=== PATIENT | female | born 1950 | race Caucasian/White ===

== ENCOUNTER 2018-04-13 18:01 | Inpatient (IN) ==
[2018-04-13] MEDS ORDERED: methylPREDNISolone SOD SUC 125 MG/2 ML VIAL IV STA (18:17)
[2018-04-13] MEDS ORDERED: KETOROLAC 30 MG/1 ML VIAL IV STA (18:17)
[2018-04-13] MEDS ORDERED: ALBUTEROL/IPRATROPIUM 3 ML NEB RESP TX STA (18:17)
[2018-04-13] MEDS ORDERED: LORazepam 2 MG/1 ML VIAL IV STA ×2 (18:17→19:19)
[2018-04-13] MEDS ORDERED: LORazepam 2 MG/1 ML VIAL ONE (18:20)
[2018-04-13] MEDS ORDERED: LEVOFLOXACIN INJ 750 MG in PREMIX 1 EACH IV STA (19:00)
[2018-04-13 19:05] LABS: Basophils # 0.1 10*3/uL (0.0-0.2); Basophils % 0.6 % (0.0-0.8); Eosinophils % 0.1 % (0.00-10.9); Hematocrit 32.8 VOL% (35.7-47.0); Hemoglobin 10.6 GM/DL (12.0-16.0); Immature Granulocytes % 12.8 %; Immature Granulocytes Absolute 2.41 #; Lymphocytes # 0.8 10*3/uL (1.4-4.0); Lymphocytes % 4.1 % (21.3-54.2); Mean Corpuscular HGB Conc 32.3 GM/DL (32-36); Mean Corpuscular Hemoglobin 26 PG (27-34); Mean Platelet Volume 9.7 FL (9.6-12.0); Monocytes # 0.5 10*3/uL (0.11-0.8); Monocytes % 2.4 % (1.7-12.7); Neutrophils # 15.1 10*3/uL (1.4-7.4); Platelet Count 396 T/CUMM (130-400); Red Blood Count 4.15 MC/CUMM (3.8-5.5); Red Cell Distribution Width 14.1 % (9.3-17.3); White Blood Count 18.9 T/CUMM (4-12)
[2018-04-13] MEDS ORDERED: HALOPERIDOL 5 MG/ML AMP ONE (19:16)
[2018-04-13] MEDS ORDERED: HALOPERIDOL 5 MG/ML AMP IM STA (19:19)
[2018-04-13 19:26] LABS: Alanine Aminotransferase 13 U/L (13-56); Albumin 2.9 G/DL (3.4-5.0); Alkaline Phosphatase 106 U/L (45-117); Aspartate Amino Transferase 25 U/L (0-37); Blood Urea Nitrogen 13 MG/DL (7-18); Calcium 9.2 MG/DL (8.5-10.1); Glucose 250 MG/DL (74-106); Osmolality,Calculated 273.4 MOS/KG (273-304); Potassium 2.9 MMOL/L (3.5-5.1); Sodium 133 MMOL/L (136-145); Total Protein 9.4 G/DL (6.4-8.3); Troponin I < 0.015 NG/ML (0.00-0.045)
[2018-04-13 19:41] LABS: INR 1.1; PT Patient Result 12.2 SECS; Partial Thromboplastin Time 33.5 SECS (0-40)
[2018-04-13 19:43] LABS: Band Neutrophils 4 % (0-10); Lymphocytes 11 % (20-55); Metamyelocytes 1 %; Reactive Lymphocytes 2+; Segmented Neutrophils 80 % (50-85); Total Cells Counted 100
[2018-04-13 19:44] LABS: Hypochromasia Slight; Microcytosis Slight
[2018-04-13 19:45] LABS: Platelet Estimate Adequate
[2018-04-13] MEDS ORDERED: PROPOFOL 1,000 MG/100 ML BOTTLE IV ONE (20:12)
[2018-04-13 20:14] LABS: Amorphous Crystals,Urine Occasional /HPF (Few); Apearance,Urine CLOUDY (Clear); Bacteria,Urine Moderate /HPF (Few); Bilirubin,Urine Negative (Negative); Blood, Urine Moderate mg/dL (Negative); Glucose,Urine (UA) 50 mg/dL (Negative); Hyaline Casts,Urine 32 /LPF (0-3); Ketones,Urine Negative (Negative); Mucus,Urine Occasional /LPF (Occasional); Nitrite,Urine Negative (Negative); Protein,Urine 100 MG/DL; RBC,Urine 8 /HPF (0-4); Squamous Epithelial Cell,Urine Occasional /HPF (0-10); Urine Color Amber (Yellow); Urine Specific Gravity 1.015 (1.001-1.035); Urine Urobilinogen < 2.0 EU/DL (0.2-1.0); WBC,Urine 23 /HPF (0-6)
[2018-04-13 20:15] LABS: Barbiturates Screen,Urine Negative (Negative); Benzodiazepines Screen,Urine Negative (Negative); Cannabinoid Screen,Urine Negative (Negative); Opiate Screen,Urine Positive (Negative); Phencyclidine Screen,Urine Negative (Negative)
[2018-04-13] MEDS ORDERED: ETOMIDATE 20 MG/10 ML VIAL IV ONE (20:27)
[2018-04-13] MEDS ORDERED: ROCURONIUM 100 MG/10 ML VIAL IV ONE (20:27)
[2018-04-13] MEDS ORDERED: diphenhydrAMINE CAP 25 MG CAPSULE PO PRN (21:08)
[2018-04-13] MEDS ORDERED: ACETAMINOPHEN 325 MG TABLET PO PRN (21:08)
[2018-04-13] MEDS ORDERED: ONDANSETRON 4 MG/2 ML VIAL IV PRN (21:08)
[2018-04-13] MEDS ORDERED: NICOTINE 21 MG/24 HR PATCH TRANSDERM PRN (21:08)
[2018-04-13] MEDS ORDERED: ALBUTEROL 2.5 MG/3 ML NEB RESP TX PRN (21:08)
[2018-04-13] MEDS: PROPOFOL 1,000 MG/100 ML BOTTLE IV SCH (21:21)
[2018-04-13] MEDS ORDERED: CEFEPIME 1,000 MG in SYRINGE 1 EACH IV SCH (21:30)
[2018-04-13] MEDS ORDERED: SODIUM CHLORIDE 0.9% 1,000 ML IV SCH (21:30)
[2018-04-13] MEDS ORDERED: PROPOFOL 1,000 MG/100 ML BOTTLE IV SCH (21:30)
[2018-04-13 21:37] LABS: ABG Base Excess -7.7 MMOL/L (-2.5-2.5); ABG HCO3 18.2 MMOL/L (20-26); ABG Oxygen Saturation 97.7 % (95-100); ABG TCO2 19.6 MMOL/L (23-27)
[2018-04-13 21:38] LABS: ABG PH 7.188 (7.35-7.45)
[2018-04-13] MEDS ORDERED: SODIUM BICARBONATE 50 MEQ/50 ML SYRINGE IV ONE ×2 (23:17→23:20)
[2018-04-13] MEDS: PANTOPRAZOLE 40 MG VIAL IV SCH (23:30)
[2018-04-13] MEDS: CEFEPIME 1,000 MG in SYRINGE 1 EACH IV SCH (23:30)
[2018-04-13] MEDS: AZITHROMYCIN INJ 500 MG in SODIUM CHLORIDE 0.9% 250 ML IV SCH (23:33)
[2018-04-13] MEDS: VANCOMYCIN INJ 1,250 MG in SODIUM CHLORIDE 0.9% 250 ML IV SCH (23:33)
[2018-04-13] MEDS: POTASSIUM CHLORIDE RIDER 10 MEQ in PREMIX 1 EACH IV PRN (23:33)
[2018-04-13] MEDS: SODIUM BICARB INJ 100 MEQ in SODIUM CHLORIDE 0.9% 1,000 ML IV SCH (23:49)
[2018-04-14 00:56] LABS: ABG Base Excess 0.6 MMOL/L (-2.5-2.5); ABG HCO3 24.9 MMOL/L (20-26); ABG PCO2 43.4 MM HG (35-48); ABG PH 7.383 (7.35-7.45); ABG PO2 82.5 MM HG (80-95); ABG TCO2 23.6 MMOL/L (23-27); Allen Test Positive; Pt O2 Delivery Device Ventilator
[2018-04-14] MEDS: ALBUTEROL/IPRATROPIUM 3 ML NEB RESP TX SCH ×4 (00:58→19:20)
[2018-04-14] MEDS: POTASSIUM CHLORIDE RIDER 10 MEQ in PREMIX 1 EACH IV PRN ×7 (02:13→13:25)
[2018-04-14 04:25] LABS: Allen Test Positive; Pt O2 Delivery Device Ventilator
[2018-04-14 04:28] LABS: ABG Base Excess 3.3 MMOL/L (-2.5-2.5); ABG HCO3 28.6 MMOL/L (20-26); ABG Oxygen Saturation 93.6 % (95-100); ABG PCO2 46.3 MM HG (35-48); ABG PH 7.408 (7.35-7.45); ABG PO2 75.1 MM HG (80-95)
[2018-04-14 04:56] LABS: Basophils # 0.1 10*3/uL (0.0-0.2); Basophils % 0.3 % (0.0-0.8); Hematocrit 29.4 VOL% (35.7-47.0); Hemoglobin 9.5 GM/DL (12.0-16.0); Immature Granulocytes % 8.9 %; Immature Granulocytes Absolute 1.28 #; Lymphocytes # 0.9 10*3/uL (1.4-4.0); Lymphocytes % 5.9 % (21.3-54.2); Mean Corpuscular HGB Conc 32.3 GM/DL (32-36); Mean Corpuscular Hemoglobin 26 PG (27-34); Mean Platelet Volume 10.1 FL (9.6-12.0); Monocytes % 6.6 % (1.7-12.7); Neutrophils # 11.2 10*3/uL (1.4-7.4); Neutrophils % 78.3 % (38.7-73.9); Platelet Count 336 T/CUMM (130-400); Red Blood Count 3.72 MC/CUMM (3.8-5.5); Red Cell Distribution Width 14.2 % (9.3-17.3); White Blood Count 14.3 T/CUMM (4-12)
[2018-04-14] MEDS: PROPOFOL 1,000 MG/100 ML BOTTLE IV SCH ×5 (05:00→21:25)
[2018-04-14 05:26] LABS: Band Neutrophils 6 % (0-10); Eosinophils 1 % (0-10); Hypochromasia 1+; Lymphocytes 8 % (20-55); Microcytosis Slight; Platelet Estimate Adequate; Segmented Neutrophils 82 % (50-85); Total Cells Counted 100
[2018-04-14 05:27] LABS: Albumin 2.4 G/DL (3.4-5.0); Bilirubin,Total 1.4 MG/DL (0.2-1.0); Calcium 8.4 MG/DL (8.5-10.1); Osmolality,Calculated 286.4 MOS/KG (273-304); Potassium 3.3 MMOL/L (3.5-5.1); Total Protein 7.8 G/DL (6.4-8.3)
[2018-04-14] MEDS: SODIUM CHLORIDE 0.45% 1,000 ML IV SCH ×2 (08:50→16:50)
[2018-04-14] MEDS: SODIUM BICARB INJ 100 MEQ in SODIUM CHLORIDE 0.9% 1,000 ML IV SCH (08:53)
[2018-04-14] MEDS: ENOXAPARIN 40 MG/0.4 ML SYRINGE SUBCUT SCH (10:07)
[2018-04-14] MEDS ORDERED: DEXTROSE 50% 25 GM/50 ML SYRINGE IV PRN (12:07)
[2018-04-14] MEDS ORDERED: GLUCAGON 1 MG VIAL IM PRN (12:07)
[2018-04-14] MEDS: INSULIN REGULAR 100 UNIT/ML SUBCUT SCH (18:58)
[2018-04-14] MEDS: CEFEPIME 1,000 MG in SYRINGE 1 EACH IV SCH (20:53)
[2018-04-14] MEDS: PANTOPRAZOLE 40 MG VIAL IV SCH (20:53)
[2018-04-14] MEDS: AZITHROMYCIN INJ 500 MG in SODIUM CHLORIDE 0.9% 250 ML IV SCH (21:26)
[2018-04-15] MEDS: ALBUTEROL/IPRATROPIUM 3 ML NEB RESP TX SCH ×4 (00:06→19:17)
[2018-04-15] MEDS: INSULIN REGULAR 100 UNIT/ML SUBCUT SCH ×4 (00:38→18:05)
[2018-04-15] MEDS: PROPOFOL 1,000 MG/100 ML BOTTLE IV SCH ×6 (00:39→21:36)
[2018-04-15] MEDS: SODIUM CHLORIDE 0.45% 1,000 ML IV SCH ×2 (01:31→09:00)
[2018-04-15 02:56] LABS: ABG Base Excess 0.3 MMOL/L (-2.5-2.5); ABG HCO3 24.4 MMOL/L (20-26); ABG Oxygen Saturation 78.8 % (95-100); ABG PCO2 45.6 MM HG (35-48); ABG PH 7.362 (7.35-7.45); ABG PO2 47.4 MM HG (80-95); Allen Test Positive; Pt O2 Delivery Device Ventilator
[2018-04-15 03:19] LABS: ABG Base Excess 0.6 MMOL/L (-2.5-2.5); ABG HCO3 24.9 MMOL/L (20-26); ABG Oxygen Saturation 96.6 % (95-100); ABG PCO2 39.5 MM HG (35-48); ABG PH 7.411 (7.35-7.45); ABG PO2 83.8 MM HG (80-95); ABG TCO2 23.1 MMOL/L (23-27)
[2018-04-15 06:04] LABS: Prealbumin 9.9 MG/DL (20-40)
[2018-04-15 08:36] LABS: Basophils # 0.1 10*3/uL (0.0-0.2); Basophils % 0.2 % (0.0-0.8); Hematocrit 28.5 VOL% (35.7-47.0); Hemoglobin 9.1 GM/DL (12.0-16.0); Immature Granulocytes % 7.7 %; Immature Granulocytes Absolute 1.92 #; Lymphocytes # 1.3 10*3/uL (1.4-4.0); Lymphocytes % 5.4 % (21.3-54.2); Mean Corpuscular HGB Conc 31.9 GM/DL (32-36); Mean Corpuscular Hemoglobin 26 PG (27-34); Mean Corpuscular Volume 81.4 FL (87-102); Mean Platelet Volume 9.8 FL (9.6-12.0); Monocytes # 1.4 10*3/uL (0.11-0.8); Monocytes % 5.5 % (1.7-12.7); Neutrophils # 20.3 10*3/uL (1.4-7.4); Neutrophils % 81.2 % (38.7-73.9); Platelet Count 361 T/CUMM (130-400); Red Cell Distribution Width 15.2 % (9.3-17.3); White Blood Count 24.9 T/CUMM (4-12)
[2018-04-15] MEDS: ENOXAPARIN 40 MG/0.4 ML SYRINGE SUBCUT SCH (08:54)
[2018-04-15 09:02] LABS: Calcium 8.5 MG/DL (8.5-10.1); Osmolality,Calculated 288.3 MOS/KG (273-304); Potassium 4.1 MMOL/L (3.5-5.1)
[2018-04-15 09:03] LABS: Band Neutrophils 1 % (0-10); Hypochromasia 1+; Lymphocytes 3 % (20-55); Platelet Estimate Adequate; Segmented Neutrophils 90 % (50-85); Total Cells Counted 100
[2018-04-15 09:04] LABS: Microcytosis Slight; Ovalocytes Slight
[2018-04-15] MEDS: CEFEPIME 1,000 MG in SYRINGE 1 EACH IV SCH (20:48)
[2018-04-15] MEDS: PANTOPRAZOLE 40 MG VIAL IV SCH (20:48)
[2018-04-16] MEDS: AZITHROMYCIN INJ 500 MG in SODIUM CHLORIDE 0.9% 250 ML IV SCH ×2 (00:18→21:23)
[2018-04-16] MEDS: VANCOMYCIN INJ 1,250 MG in SODIUM CHLORIDE 0.9% 250 ML IV SCH (00:18)
[2018-04-16] MEDS: INSULIN REGULAR 100 UNIT/ML SUBCUT SCH ×4 (00:20→18:16)
[2018-04-16] MEDS: PROPOFOL 1,000 MG/100 ML BOTTLE IV SCH ×7 (00:20→23:15)
[2018-04-16] MEDS: ALBUTEROL/IPRATROPIUM 3 ML NEB RESP TX SCH ×4 (01:05→20:20)
[2018-04-16 03:55] LABS: ABG Base Excess 1.2 MMOL/L (-2.5-2.5); ABG HCO3 25.4 MMOL/L (20-26); ABG Oxygen Saturation 97.2 % (95-100); ABG PCO2 38.4 MM HG (35-48); ABG PH 7.438 (7.35-7.45); ABG PO2 100.9 MM HG (80-95); ABG TCO2 26.6 MMOL/L (23-27); Allen Test Positive; Pt O2 Delivery Device Ventilator
[2018-04-16 05:46] LABS: Basophils # 0.1 10*3/uL (0.0-0.2); Basophils % 0.5 % (0.0-0.8); Hematocrit 31.3 VOL% (35.7-47.0); Hemoglobin 9.5 GM/DL (12.0-16.0); Immature Granulocytes % 11.7 %; Immature Granulocytes Absolute 1.97 #; Lymphocytes # 1.4 10*3/uL (1.4-4.0); Lymphocytes % 8.5 % (21.3-54.2); Mean Corpuscular HGB Conc 30.4 GM/DL (32-36); Mean Corpuscular Hemoglobin 25 PG (27-34); Mean Platelet Volume 9.3 FL (9.6-12.0); Monocytes % 6.1 % (1.7-12.7); Neutrophils # 12.4 10*3/uL (1.4-7.4); Neutrophils % 73.2 % (38.7-73.9); Platelet Count 399 T/CUMM (130-400); Red Blood Count 3.77 MC/CUMM (3.8-5.5); Red Cell Distribution Width 15.4 % (9.3-17.3); White Blood Count 16.9 T/CUMM (4-12)
[2018-04-16 06:08] LABS: Albumin 2.4 G/DL (3.4-5.0); Bilirubin,Total 0.8 MG/DL (0.2-1.0); Calcium 9.1 MG/DL (8.5-10.1); Osmolality,Calculated 295.7 MOS/KG (273-304); Potassium 4.1 MMOL/L (3.5-5.1); Total Protein 7.6 G/DL (6.4-8.3)
[2018-04-16 06:19] LABS: Band Neutrophils 2 % (0-10); Lymphocytes 8 % (20-55); Metamyelocytes 2 %; Platelet Estimate Normal; Segmented Neutrophils 81 % (50-85); Total Cells Counted 100
[2018-04-16] MEDS ORDERED: fentaNYL INJ 1,250 MCG in SODIUM CHLORIDE 0.9% 225 ML IV PRN (10:00)
[2018-04-16] MEDS: ENOXAPARIN 30 MG/0.3 ML SYRINGE SUBCUT SCH (10:40)
[2018-04-16] MEDS ORDERED: QUEtiapine 100 MG TABLET PO SCH (12:00)
[2018-04-16] MEDS: fentaNYL 100 MCG/HR PATCH TRANSDERM SCH (16:56)
[2018-04-16] MEDS: fentaNYL 100 MCG/2 ML VIAL IV PRN (17:43)
[2018-04-16] MEDS: QUEtiapine 100 MG TABLET PO SCH (21:10)
[2018-04-16] MEDS: CEFEPIME 1,000 MG in SYRINGE 1 EACH IV SCH (21:16)
[2018-04-16] MEDS: PANTOPRAZOLE 40 MG VIAL IV SCH (21:18)
[2018-04-17] MEDS: INSULIN REGULAR 100 UNIT/ML SUBCUT SCH ×4 (00:02→17:54)
[2018-04-17] MEDS: ALBUTEROL/IPRATROPIUM 3 ML NEB RESP TX SCH ×4 (00:21→18:00)
[2018-04-17] MEDS: PROPOFOL 1,000 MG/100 ML BOTTLE IV SCH ×8 (02:20→22:26)
[2018-04-17] MEDS: fentaNYL 100 MCG/2 ML VIAL IV PRN ×2 (02:21→15:26)
[2018-04-17 04:40] LABS: ABG Base Excess 1.7 MMOL/L (-2.5-2.5); ABG HCO3 26.2 MMOL/L (20-26); ABG Oxygen Saturation 97.7 % (95-100); ABG PCO2 41.1 MM HG (35-48); ABG PH 7.423 (7.35-7.45); ABG TCO2 27.5 MMOL/L (23-27); Allen Test Positive; Pt O2 Delivery Device Ventilator
[2018-04-17 05:30] LABS: Basophils # 0.1 10*3/uL (0.0-0.2); Basophils % 0.7 % (0.0-0.8); Eosinophils # 0.1 10*3/uL (0.0-0.87); Eosinophils % 0.6 % (0.00-10.9); Hematocrit 32.3 VOL% (35.7-47.0); Hemoglobin 9.7 GM/DL (12.0-16.0); Immature Granulocytes % 11.5 %; Immature Granulocytes Absolute 1.32 #; Lymphocytes # 1.7 10*3/uL (1.4-4.0); Lymphocytes % 14.6 % (21.3-54.2); Mean Corpuscular Hemoglobin 25 PG (27-34); Mean Corpuscular Volume 84.3 FL (87-102); Mean Platelet Volume 9.1 FL (9.6-12.0); Monocytes # 0.7 10*3/uL (0.11-0.8); Monocytes % 6.1 % (1.7-12.7); Neutrophils # 7.6 10*3/uL (1.4-7.4); Neutrophils % 66.5 % (38.7-73.9); Platelet Count 381 T/CUMM (130-400); Red Blood Count 3.83 MC/CUMM (3.8-5.5); Red Cell Distribution Width 15.8 % (9.3-17.3); White Blood Count 11.5 T/CUMM (4-12)
[2018-04-17 05:49] LABS: Osmolality,Calculated 292.8 MOS/KG (273-304); Potassium 4.1 MMOL/L (3.5-5.1)
[2018-04-17 05:55] LABS: Band Neutrophils 3 % (0-10); Eosinophils 1 % (0-10); Lymphocytes 18 % (20-55); Platelet Estimate Adequate; Segmented Neutrophils 67 % (50-85); Total Cells Counted 100
[2018-04-17 05:56] LABS: Hypochromasia 1+; Microcytosis Slight; Ovalocytes Slight
[2018-04-17] MEDS: ENOXAPARIN 30 MG/0.3 ML SYRINGE SUBCUT SCH (08:34)
[2018-04-17] MEDS: QUEtiapine 100 MG TABLET PO SCH (21:07)
[2018-04-17] MEDS: PANTOPRAZOLE 40 MG VIAL IV SCH (21:07)
[2018-04-17] MEDS: CEFEPIME 1,000 MG in SYRINGE 1 EACH IV SCH (21:08)
[2018-04-17] MEDS: AZITHROMYCIN INJ 500 MG in SODIUM CHLORIDE 0.9% 250 ML IV SCH (21:09)
[2018-04-18] MEDS: INSULIN REGULAR 100 UNIT/ML SUBCUT SCH ×4 (00:11→18:15)
[2018-04-18] MEDS: PROPOFOL 1,000 MG/100 ML BOTTLE IV SCH ×4 (00:32→09:45)
[2018-04-18] MEDS: ALBUTEROL/IPRATROPIUM 3 ML NEB RESP TX SCH ×4 (00:42→19:10)
[2018-04-18 03:45] LABS: Basophils # 0.1 10*3/uL (0.0-0.2); Basophils % 0.5 % (0.0-0.8); Eosinophils # 0.2 10*3/uL (0.0-0.87); Eosinophils % 1.8 % (0.00-10.9); Hematocrit 33.1 VOL% (35.7-47.0); Hemoglobin 10.1 GM/DL (12.0-16.0); Immature Granulocytes % 8.3 %; Immature Granulocytes Absolute 1.09 #; Lymphocytes # 1.7 10*3/uL (1.4-4.0); Lymphocytes % 12.7 % (21.3-54.2); Mean Corpuscular HGB Conc 30.5 GM/DL (32-36); Mean Corpuscular Hemoglobin 26 PG (27-34); Mean Corpuscular Volume 83.6 FL (87-102); Mean Platelet Volume 9.1 FL (9.6-12.0); Monocytes # 0.9 10*3/uL (0.11-0.8); Monocytes % 6.6 % (1.7-12.7); Neutrophils # 9.2 10*3/uL (1.4-7.4); Neutrophils % 70.1 % (38.7-73.9); Platelet Count 382 T/CUMM (130-400); Red Blood Count 3.96 MC/CUMM (3.8-5.5); Red Cell Distribution Width 15.4 % (9.3-17.3); White Blood Count 13.1 T/CUMM (4-12)
[2018-04-18 04:01] LABS: Calcium 8.7 MG/DL (8.5-10.1); Potassium 4.3 MMOL/L (3.5-5.1)
[2018-04-18 04:06] LABS: Prealbumin 21.9 MG/DL (20-40)
[2018-04-18 04:21] LABS: ABG Base Excess 1.1 MMOL/L (-2.5-2.5); ABG HCO3 25.4 MMOL/L (20-26); ABG PCO2 43.6 MM HG (35-48); ABG PH 7.388 (7.35-7.45); ABG TCO2 23.9 MMOL/L (23-27); Allen Test Positive; Pt O2 Delivery Device Ventilator
[2018-04-18 04:47] LABS: Band Neutrophils 2 % (0-10); Hypochromasia 1+; Lymphocytes 17 % (20-55); Microcytosis Slight; Nucleated Red Blood Cells 1 (0-5); Ovalocytes Slight; Platelet Estimate Adequate; Segmented Neutrophils 74 % (50-85); Total Cells Counted 100
[2018-04-18] MEDS ORDERED: FUROSEMIDE 20 MG/2 ML VIAL IV ONE (08:37)
[2018-04-18] MEDS: ENOXAPARIN 30 MG/0.3 ML SYRINGE SUBCUT SCH (09:29)
[2018-04-18] MEDS: fentaNYL 100 MCG/HR PATCH TRANSDERM SCH (16:59)
[2018-04-18] MEDS ORDERED: INFLUENZA VIRUS VACCINE 0.5 ML SYRINGE IM ONE (19:12)
[2018-04-18] MEDS: fentaNYL 100 MCG/2 ML VIAL IV PRN (19:38)
[2018-04-18] MEDS ORDERED: LORazepam 2 MG/1 ML VIAL IV PRN ×2 (20:47→23:51)
[2018-04-18] MEDS: PANTOPRAZOLE 40 MG VIAL IV SCH (21:45)
[2018-04-18] MEDS: CEFEPIME 1,000 MG in SYRINGE 1 EACH IV SCH (21:45)
[2018-04-18] MEDS: QUEtiapine 100 MG TABLET PO SCH (21:47)
[2018-04-18] MEDS ORDERED: OLANZapine 10 MG VIAL IM PRN (23:46)
[2018-04-19] MEDS: INSULIN REGULAR 100 UNIT/ML SUBCUT SCH (00:52)
[2018-04-19] MEDS: ALBUTEROL/IPRATROPIUM 3 ML NEB RESP TX SCH ×4 (01:07→19:52)
[2018-04-19] MEDS: fentaNYL 100 MCG/2 ML VIAL IV PRN ×2 (05:06→11:48)
[2018-04-19 06:33] LABS: Basophils # 0.1 10*3/uL (0.0-0.2); Basophils % 0.8 % (0.0-0.8); Eosinophils # 0.2 10*3/uL (0.0-0.87); Eosinophils % 1.2 % (0.00-10.9); Hematocrit 37.7 VOL% (35.7-47.0); Hemoglobin 11.8 GM/DL (12.0-16.0); Immature Granulocytes % 6.2 %; Immature Granulocytes Absolute 0.98 #; Lymphocytes % 12.6 % (21.3-54.2); Mean Corpuscular HGB Conc 31.3 GM/DL (32-36); Mean Corpuscular Hemoglobin 26 PG (27-34); Mean Corpuscular Volume 81.4 FL (87-102); Mean Platelet Volume 9.2 FL (9.6-12.0); Monocytes # 1.3 10*3/uL (0.11-0.8); Monocytes % 8.3 % (1.7-12.7); Neutrophils # 11.2 10*3/uL (1.4-7.4); Neutrophils % 70.9 % (38.7-73.9); Platelet Count 487 T/CUMM (130-400); Red Blood Count 4.63 MC/CUMM (3.8-5.5); White Blood Count 15.8 T/CUMM (4-12)
[2018-04-19 06:50] LABS: Calcium 9.7 MG/DL (8.5-10.1); Osmolality,Calculated 290.3 MOS/KG (273-304)
[2018-04-19 07:11] LABS: Band Neutrophils 1 % (0-10); Eosinophils 2 % (0-10); Hypochromasia 1+; Lymphocytes 14 % (20-55); Metamyelocytes 1 %; Microcytosis 1+; Myelocytes 1 %; Segmented Neutrophils 74 % (50-85); Total Cells Counted 100
[2018-04-19 07:12] LABS: Platelet Estimate Increased
[2018-04-19] MEDS ORDERED: INSULIN REGULAR 100 UNIT/ML SUBCUT SCH (07:30)
[2018-04-19] MEDS ORDERED: NYSTATIN 500,000 UNIT/5 ML UDCUP SWISH/SWAL SCH (09:00)
[2018-04-19] MEDS: ENOXAPARIN 30 MG/0.3 ML SYRINGE SUBCUT SCH (09:15)
[2018-04-19] MEDS: CLOTRIMAZOLE 10 MG TROCHE PO SCH ×4 (09:15→21:23)
[2018-04-19] MEDS ORDERED: traZODone 50 MG TABLET PO SCH (21:00)
[2018-04-19] MEDS: QUEtiapine 100 MG TABLET PO SCH (21:23)
[2018-04-19] MEDS: PANTOPRAZOLE 40 MG VIAL IV SCH (21:24)
[2018-04-19] MEDS: CEFEPIME 1,000 MG in SYRINGE 1 EACH IV SCH (21:26)
[2018-04-20] MEDS: ALBUTEROL/IPRATROPIUM 3 ML NEB RESP TX SCH ×2 (01:47→08:40)
[2018-04-20 04:37] LABS: Calcium 9.2 MG/DL (8.5-10.1); Osmolality,Calculated 281.8 MOS/KG (273-304); Potassium 3.7 MMOL/L (3.5-5.1)
[2018-04-20 04:39] VITALS: BP 139/73
[2018-04-20 05:18] LABS: Rheumatoid Factor < 15 IU/ML (<15); Total Protein 8.9 G/DL (6.4-8.3)
[2018-04-20] MEDS ORDERED: CITALOPRAM 40 MG TABLET PO SCH (09:00)
[2018-04-20] MEDS: CLOTRIMAZOLE 10 MG TROCHE PO SCH (09:17)
[2018-04-20] MEDS: ENOXAPARIN 30 MG/0.3 ML SYRINGE SUBCUT SCH (09:17)
[2018-04-20] MEDS ORDERED: INFLUENZA VIRUS VACCINE 0.5 ML SYRINGE IM ONE (11:00)
[2018-04-20] MEDS ORDERED: CEFUROXIME 500 MG TABLET PO SCH (21:00)
[2018-04-21 07:34] LABS: Total Protein (Chem) 8.9 G/DL (6.4-8.3)
[2018-04-21 10:13] LABS: Albumin (SPE) 3.7 G/DL (3.2-5.3); Albumin (SPE) Rel % 42.3 %; Alpha 1 (SPE) 0.4 G/DL (0.1-0.4); Alpha 1 (SPE) Rel % 4.6 %; Alpha 2 (SPE) 1.4 G/DL (0.4-1.0); Alpha 2 (SPE) Rel % 15.7 %; Beta (SPE) 1.3 G/DL (0.5-1.1); Gamma (SPE) 2.1 G/DL (0.7-1.7); Gamma (SPE) Rel % 23.4 %
== END 2018-04-20 11:20 | disposition home or self-care (01) | DRG 870 ==
LOC: N.ED 18:01 → SUATTDRO 21:08 → N.EDINP 21:08 → N.ICU 21:59
PROVIDERS: ADMIT Internal Medicine; ATTEND Internal Medicine Cardiovascular Disease